=== PATIENT | male | born 1950 | race Caucasian/White ===

== ENCOUNTER 2024-07-24 17:11 | Emergency (ER) | payer MEDICAID ==
[~2024-07-24] VITALS: Ht 177.8 cm; Wt 116.0 kg
[2024-07-24] VITALS (9 sets, daily range): BP systolic 134–167; BP diastolic 70–90
[2024-07-24] MEDS ORDERED: ONDANSETRON HCl 4 MG/2 ML SDV IV ONE (18:05)
[2024-07-24] MEDS ORDERED: SODIUM CHLORIDE 0.9% 1,000 ML IV ONE (18:05)
[2024-07-24] MEDS ORDERED: MORPHINE SULFATE 4 MG/ML VIAL IV ONE (18:05)
[2024-07-24 18:24] LABS: BASO% 0.5 % (0-3); EOS% 0.9 % (0-8); HEMATOCRIT 51.9 % (39.0-50.0); IMMATURE GRANULOCYTES 0.3 % (0.0-5.0); LYMPH% 9.7 % (15-41); MEAN CELL VOLUME 85.5 fL CALC (80.0-100.0); MEAN CORPUSCULAR HGB CONC 32.8 g/dL CAL (32.0-36.0); NEUT# 6.4 thou/uL (1.82-7.42); NEUT% 81.6 % (42-76); RED BLOOD COUNT 6.07 mill/uL (4.70-6.10); RED CELL DISTRI WIDTH 13.5 % (11.5-15.5)
[2024-07-24 18:28] LABS: ALBUMIN 4.4 g/dL (3.2-5.0); BILIRUBIN, TOTAL 1.6 mg/dL (0.2-1.3); CREATININE 1.3 mg/dL (0.7-1.3); POTASSIUM 3.6 mmol/l (3.5-5.1); TOTAL PROTEIN 7.3 g/dL (6.3-8.2)
[2024-07-24] MEDS ORDERED: HYDROmorphone HCL 2 MG/AMP IV ONE ×2 (18:50→20:40)
== END 2024-07-24 21:12 ==
LOC: ED 17:11
PROVIDERS: Nurse Practitioner
DX: S42.291A Other displaced fracture of upper end of right humerus, initial encounter for closed fracture (principal); I10 Essential (primary) hypertension; E11.9 Type 2 diabetes mellitus without complications; W18.30XA Fall on same level, unspecified, initial encounter; Y92.008 Other place in unspecified non-institutional (private) residence as the place of occurrence of the external cause
CPT/HCPCS: J1171; J2405